=== PATIENT | female | born 1960 | race African-American/Black ===

== ENCOUNTER 2017-08-03 12:14 | Inpatient (IN) | payer OTHER ==
[2017-08-03 14:01] VITALS: BMI 38.9
[2017-08-03] MEDS ORDERED: NICOTINE POLACRILEX 2 MG GUM BUC PRN (14:11)
[2017-08-03] MEDS ORDERED: guaiFENesin/D-METHORPHAN HB 10 ML UNIT-DOSE CUPS PO PRN (14:11)
[2017-08-03] MEDS ORDERED: chlordiazePOXIDE HCL 25 MG CAPSULE PO PRN (14:11)
[2017-08-03] MEDS ORDERED: IBUPROFEN 400 MG TABLET (FP) PO PRN (14:11)
[2017-08-03] MEDS ORDERED: MAGNESIUM HYDROX 2400MG/30ML ORAL SUSPENSION 30 ML CUP PO PRN (14:11)
[2017-08-03] MEDS ORDERED: ACETAMINOPHEN 325 MG TABLET (FP) PO PRN (14:11)
[2017-08-03] MEDS ORDERED: P-EPHED 60MG/TRIPROLIDI 2.5MG TABLET PO PRN (14:11)
[2017-08-03] MEDS ORDERED: MAGNESIUM CITRATE 300 ML BOTTLE PO PRN (14:11)
[2017-08-03] MEDS ORDERED: MAG HYDROX/AL HYDROX/SIMETH 30 ML UNIT-DOSE CUP PO PRN (14:11)
[2017-08-03] MEDS ORDERED: LOPERAMIDE HCL 2 MG CAPSULE PO PRN (14:11)
[2017-08-03] MEDS ORDERED: MENTHOL/PHENOL 1 EACH UD MM PRN (14:11)
--- NOTE | 2017-08-03 14:22 | HP ---
CIWA Score - CIWA Score Nausea/Vomitin Muscle Tremors: 2 Anxiety: 3 Agitation: 4-Moderately Restless Paroxysmal Sweats: 2 Orientation: 0-Oriented Tacttile Disturbances: 0-None Auditory Disturbances: 0-None Visual Disturbances: 0-None Headache: 0-None Present CIWA-Ar Total Score: 14 Admission [facility] - HPI Chief Complaint: " I am here to detox off xanax and alcohol" Allergies/Adverse Reactions: Allergies Allergy/AdvReac Type Severity Reaction Status Date / Time No Known Drug Allergies Allergy Verified 08/03/17 14:10 History of Present Illness: 57 yo female with hx of xanax, alcohol, cocaine and nicotine dependence is here seeking detox. Last detox [facility] 2013. PMHX: GRD, hyperthyroid, bipolar, insomnia , and depression. I-stop reviewed patient no hx of prescribed controlled substances Reference #: [id number]. Denies suicidal / homicidal ideation. Hx of suicide attempt, patient did not specify went. Exam Limitations: No Limitations - Ebola screening Have you traveled outside of the country in the last 21 days: No Have you had contact with anyone from an Ebola affected area: No Have you been sick,other than usual withdrawal symptoms: No Do you have a fever: No - Review of Systems Constitutional: Chills, Changes in sleep EENT: reports: No Symptoms Reported Respiratory: reports: No Symptoms reported Cardiac: reports: No Symptoms Reported GI: reports: Diarrhea, Nausea, Poor Fluid Intake : reports: No Symptoms Reported Musculoskeletal: reports: Back Pain Integumentary: reports: No Symptoms Reported Neuro: reports: No Symptoms reported Endocrine: reports: See HPI Hematology: reports: No Symptoms Reported Psychiatric: reports: Orientated x3, Anxious Other Systems: Reviewed and Negative Patient History - Patient Medical History Hx Anemia: No Hx Asthma: No Hx Chronic Obstructive Pulmonary Disease (COPD): No Hx Cancer: No Hx Cardiac Disorders: No Hx Congestive Heart Failure: No Hx Hypertension: No Hx Hypercholesterolemia: No Hx Pacemaker: No HX Cerebrovascular Accident: No Hx Seizures: No Hx Dementia: No Hx Diabetes: No Hx Gastrointestinal Disorders: No Hx Liver Disease: No Hx Genitourinary Disorders: No Hx Sexually Transmitted Disorders: No Hx Renal Disease (ESRD): No Hx Thyroid Disease: Yes (GRAVES) Hx Human Immunodeficiency Virus (HIV): No Hx Hepatitis C: No Hx Depression: No Hx Suicide Attempt: Yes (OD,SLASH WRIST) Hx Bipolar Disorder: Yes (SEROQUEL,TRAZODONE,WELLBUTRIN) Hx Schizophrenia: No - Patient Surgical History Past Surgical History: Yes Hx Neurologic Surgery: No Hx Cataract Extraction: No Hx Cardiac Surgery: No Hx Lung Surgery: No Hx Breast Surgery: No Hx Breast Biopsy: No Hx Abdominal Surgery: No Hx Appendectomy: No Hx Cholecystectomy: No Hx Genitourinary Surgery: No Hx Section: No Hx Orthopedic Surgery: No Hx Hysterectomy: No Other Surgical History: TUBAL LIGATION Anesthesia Reaction: (UNKNOWN) - PPD History Previous Implant?: Yes Documented Results: Negative w/proof Date: 09/25/13 PPD to be Administered?: Yes - Reproductive History Patient is a Female of Child Bearing Age (11 -55 yrs old): No Last Menstrual Period: 09/23/13 Patient : No - Smoking Cessation Smoking history: Current every day smoker Have you smoked in the past 12 months: Yes Aproximately how many cigarettes per day: 20 Hx Chewing Tobacco Use: No Initiated information on smoking cessation: Yes 'Breaking Loose' booklet given: 08/03/17 - Substance & Tx. History Hx Alcohol Use: Yes Hx Substance Use: Yes Substance Use Type: Alcohol Hx Substance Use Treatment: Yes ([facility] 2013) - Substances Abused Alcohol Route: Oral Frequency: Daily Amount used: 1 [place] Age of first use: 17 Date of Last Use: 08/02/17 Crack Route: Smoking Frequency: Daily Amount used: $300-400 Age of first use: 17 Date of Last Use: 08/02/17 Alprazolam (Xanax) Route: Oral Frequency: 1-3 times last 30 days Amount used: 2MG Age of first use: 56 Date of Last Use: 07/31/17 Family Disease History - Family Disease History Family Disease History: Diabetes: Mother (ALCOHOL), Other: Father (ALCOHOL), Mother Admission Physical Exam S - Vital Signs Vital Signs: Vital Signs - 24 hr 08/03/17 13:58 Temperature 96.8 F L Pulse Rate 71 Respiratory 18 Rate Blood Pressure 149/70 - Physical General Appearance: Yes: Appropriately Dressed, Mild Distress, Obese, Sweating, Anxious HEENTM: Yes: EOMI, Hearing grossly Normal, Normal ENT Inspection, Normocephalic , Normal Voice, Pharynx Normal, Tm's normal, Other (poor dentation) Respiratory: Yes: Chest Non-Tender, Lungs Clear, Normal Breath Sounds, No Respiratory Distress, No Accessory Muscle Use Neck: Yes: Within Normal Limits Breast: Yes: Breast Exam Deferred, Surgical Scar Cardiology: Yes: Regular Rhythm Abdominal: Yes: Normal Bowel Sounds, Non Tender, Flat Genitourinary: Yes: Within Normal Limits Back: Yes: Normal Inspection Musculoskeletal: Yes: full range of Motion, Gait Steady, Pelvis Stable, Back pain Extremities: Yes: Normal Capillary Refill, Normal Inspection, Normal Range of Motion, Non-Tender Neurological: Yes: art glass setter II-XII NML intact, Motor Strength 5/5 Integumentary: Yes: Normal Color, Warm, Diaphoresis Lymphatic: Yes: Within Normal Limits - Diagnostic (1) Alcohol dependence with withdrawal Current Visit: Yes Status: Acute Qualifiers: Complication of substance-induced condition: uncomplicated Qualified Code(s ): F10.230 - Alcohol dependence with withdrawal, uncomplicated (2) Sedative hypnotic or anxiolytic dependence Current Visit: Yes Status: Acute (3) Obese Current Visit: Yes Status: Acute Qualifiers: Obesity classification: adult class 2 (BMI 35 - 39.9) Serious obesity comorbidity presence: unspecified whether serious comorbidity present (4) GERD (gastroesophageal reflux disease) Current Visit: Yes Status: Chronic Qualifiers: Esophagitis presence: esophagitis presence not specified Qualified Code(s) : K21.9 - Gastro-esophageal reflux disease without esophagitis (5) Cocaine dependence Current Visit: Yes Status: Acute Qualifiers: Substance use status: uncomplicated Qualified Code(s): F14.20 - Cocaine dependence, uncomplicated (6) Graves disease Current Visit: Yes Status: Chronic (7) Nicotine dependence Current Visit: Yes Status: Acute Qualifiers: Nicotine product type: cigarettes (8) Back pain Current Visit: Yes Status: Chronic Qualifiers: Back pain location: low back pain Chronicity: chronic Back pain laterality: midline Sciatica presence: without sciatica Qualified Code(s): M54.5 - Low back pain; G89.29 - Other chronic pain BHS Breath Alcohol Content Breath Alcohol Content: 0 Urine Pregancy Test - Result Urine Test Results: Negative- NO Line Present Urine Drug Screen - Results Drug Screen Negative: No Urine Drug Screen Results: DAIN-Cocaine
[2017-08-03] MEDS ORDERED: chlordiazePOXIDE HCL 25 MG CAPSULE PO ONE (15:55)
[2017-08-03] MEDS: LIDOCAINE 5% TOPICAL PATCH TP SCH (17:33)
[2017-08-03 19:51] LABS: URINE APPEARANCE CLOUDY; URINE BILIRUBIN NEGATIVE (<2.0 mg/dL); URINE COLOR YELLOW; URINE GLUCOSE (UA) NEGATIVE (NEGATIVE); URINE KETONE NEGATIVE (NEGATIVE); URINE NITRITE NEGATIVE (NEGATIVE); URINE PROTEIN NEGATIVE (NEGATIVE); URINE UROBILINOGEN NEGATIVE mg/dL (0.2-1.0)
[2017-08-03 19:54] LABS: URINE LEUK ESTERASE 3+ (NEGATIVE)
[2017-08-03 20:00] LABS: EPI CELLS MANY /HPF (FEW); URINE BACTERIA RARE /hpf (NONE SEEN); URINE MUCUS FEW
[2017-08-03] MEDS: METHIMAZOLE 10 MG TABLET (FP) PO SCH ×2 (20:36→23:09)
[2017-08-03] MEDS: chlordiazePOXIDE HCL 25 MG CAPSULE PO SCH ×2 (20:36→22:15)
[2017-08-03] MEDS ORDERED: MELATONIN 5 MG TABLETS PO PRN (22:00)
[2017-08-03] MEDS: LIDOCAINE PATCH REMOVAL MC SCH (22:15)
[2017-08-03] MEDS: THIAMINE HCL 100 MG TABLET (FP) PO SCH (22:15)
[2017-08-03] MEDS: PANTOPRAZOLE 20 MG TABLET (FP) PO SCH (22:15)
[2017-08-04] MEDS: chlordiazePOXIDE HCL 25 MG CAPSULE PO SCH ×4 (05:08→22:23)
[2017-08-04] MEDS: METHIMAZOLE 10 MG TABLET (FP) PO SCH ×2 (07:49→15:22)
--- NOTE | 2017-08-04 09:41 | PN ---
S CIWA - CIWA Score Nausea/Vomitin Muscle Tremors: 3 Anxiety: 2 Agitation: 2 Paroxysmal Sweats: 3 Orientation: 0-Oriented Tacttile Disturbances: 1-Very Mild Itch/Numbness Auditory Disturbances: 1-Very Mild Visual Disturbances: 1-Very Mild Sensitivity Headache: 1-Very Mild CIWA-Ar Total Score: 16 BHS Progress Note (SOAP) Subjective: Irritability, interrupted slee, shakes and sweats Objective: 08/04/17 09:40 Vital Signs - 8 hr 08/04/17 08/04/17 03:30 06:16 Temperature 97.7 F Pulse Rate 67 Respiratory 18 18 Rate Blood Pressure 133/71 Laboratory Last Values Urine Color Yellow 08/03/17 16:15 Urine Appearance Cloudy 08/03/17 16:15 Urine pH 5.0 (5.0-8.0) 08/03/17 16:15 Ur Specific [place] 1.025 (1.001-1.035) 08/03/17 16:15 Urine Protein Negative (NEGATIVE) 08/03/17 16:15 Urine Glucose (UA) Negative (NEGATIVE) 08/03/17 16:15 Urine Ketones Negative (NEGATIVE) 08/03/17 16:15 Urine Blood Negative (NEGATIVE) 08/03/17 16:15 Urine Nitrite Negative (NEGATIVE) 08/03/17 16:15 Urine Bilirubin Negative (<2.0 mg/dL) 08/03/17 16:15 Urine Urobilinogen Negative mg/dL (0.2-1.0) 08/03/17 16:15 Ur Leukocyte Esterase 3+ (NEGATIVE) H 08/03/17 16:15 Urine WBC (Auto) 10 /hpf (3-5) 08/03/17 16:15 Urine RBC (Auto) 3 /hpf (0-3) 08/03/17 16:15 Ur Epithelial Cells Many /HPF (FEW) 08/03/17 16:15 Urine Bacteria Rare /hpf (NONE SEEN) 08/03/17 16:15 Urine Mucus Few 08/03/17 16:15 Labs pending, UA noted to be contaminated Assessment: 08/04/17 09:41 Withdrawal sx Plan: Continue detox Repeat UA
[2017-08-04] MEDS: PRENATAL VITAMINS W/ FOLIC ACID TABLET (FP) PO SCH (10:04)
[2017-08-04] MEDS: NICOTINE 14 MG/24 HOURS TOPICAL PATCH TD SCH (10:04)
[2017-08-04] MEDS: LIDOCAINE 5% TOPICAL PATCH TP SCH (10:04)
[2017-08-04] MEDS: PANTOPRAZOLE 20 MG TABLET (FP) PO SCH ×2 (10:05→22:23)
[2017-08-04 10:27] LABS: HEMOGLOBIN 11.9 GM/dL (10.7-15.3); MCH 24.3 pg (25.7-33.7); MCHC 31.3 g/dl (32.0-36.0); MEAN CELL VOLUME 77.5 fl (80-96); MEAN PLT VOLUME 9.4 fl (7.5-11.1); PLATELET COUNT 152 K/MM3 (134-434); RBC 4.91 M/mm3 (3.60-5.2); RDW 16.7 % (11.6-15.6); WHITE BLOOD COUNT 4.1 K/mm3 (4.0-10.0)
[2017-08-04 10:47] LABS: ANION GAP 7 (8-16); BLOOD UREA NITROGEN 9 mg/dL (7-18); CALCIUM 8.7 mg/dL (8.5-10.1); CHLORIDE 107 mmol/L (98-107); CO2 27 mmol/L (21-32); GLUCOSE,RANDOM 95 mg/dL (74-106); POTASSIUM 3.8 mmol/L (3.5-5.1); SODIUM 141 mmol/L (136-145)
[2017-08-04 10:51] LABS: ALK PHOS 139 U/L (45-117); BILIRUBIN,TOTAL 0.3 mg/dL (0.2-1.0); CREATININE 0.5 mg/dL (0.55-1.02); SGOT/AST 13 U/L (15-37); SGPT/ALT 20 U/L (12-78); TOT PROT 6.8 g/dl (6.4-8.2)
[2017-08-04] MEDS: hydrOXYzine PAMOATE 50 MG CAPSULE (FP) PO PRN (17:44)
[2017-08-04] MEDS ORDERED: METHIMAZOLE 10 MG TABLET (FP) PO SCH (22:00)
[2017-08-04] MEDS: THIAMINE HCL 100 MG TABLET (FP) PO SCH (22:23)
[2017-08-04] MEDS: LIDOCAINE PATCH REMOVAL MC SCH (22:24)
[2017-08-05] MEDS: chlordiazePOXIDE HCL 25 MG CAPSULE PO SCH ×2 (05:26→10:09)
[2017-08-05] MEDS: METHIMAZOLE 10 MG TABLET (FP) PO SCH ×2 (05:29→13:52)
[2017-08-05] MEDS: PANTOPRAZOLE 20 MG TABLET (FP) PO SCH (10:09)
[2017-08-05] MEDS: PRENATAL VITAMINS W/ FOLIC ACID TABLET (FP) PO SCH (10:09)
[2017-08-05] MEDS: hydrOXYzine PAMOATE 50 MG CAPSULE (FP) PO PRN ×2 (10:09→13:53)
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
[2017-08-05] MEDS: LIDOCAINE 5% TOPICAL PATCH TP SCH (11:40)
[2017-08-05] MEDS: NICOTINE 14 MG/24 HOURS TOPICAL PATCH TD SCH (11:41)
[2017-08-05] MEDS: TOPIRAMATE 25 MG TABLET (FP) PO SCH (13:52)
--- NOTE | 2017-08-05 17:00 | PN ---
[facility] CIWA - CIWA Score Nausea/Vomitin-Mild Nausea/No Vomiting Muscle Tremors: 4-Moderate,w/Arms Extend Anxiety: 4-Mod. Anxious/Guarded Agitation: 3 Paroxysmal Sweats: 1-Minimal Palms Moist Orientation: 0-Oriented Tacttile Disturbances: 0-None Auditory Disturbances: 0-None Visual Disturbances: 0-None Headache: 0-None Present CIWA-Ar Total Score: 13 BHS Progress Note (SOAP) Subjective: anxiety tremor sweat restlessness Objective: 08/05/17 17:18 Vital Signs Temperature 97.9 F 08/05/17 13:09 Pulse Rate 67 08/05/17 13:09 Respiratory Rate 18 08/05/17 13:09 Blood Pressure 140/57 08/05/17 13:09 O2 Sat by Pulse Oximetry (%) Laboratory Last Values WBC 4.1 K/mm3 (4.0-10.0) 08/04/17 08:00 RBC 4.91 M/mm3 (3.60-5.2) 08/04/17 08:00 Hgb 11.9 GM/dL (10.7-15.3) 08/04/17 08:00 Hct 38.0 % (32.4-45.2) 08/04/17 08:00 MCV 77.5 fl (80-96) L 08/04/17 08:00 MCH 24.3 pg (25.7-33.7) L D 08/04/17 08:00 MCHC 31.3 g/dl (32.0-36.0) L 08/04/17 08:00 RDW 16.7 % (11.6-15.6) H 08/04/17 08:00 Plt Count 152 K/MM3 (134-434) D 08/04/17 08:00 MPV 9.4 fl (7.5-11.1) 08/04/17 08:00 Sodium 141 mmol/L (136-145) 08/04/17 08:00 Potassium 3.8 mmol/L (3.5-5.1) 08/04/17 08:00 Chloride 107 mmol/L (98-107) 08/04/17 08:00 Carbon Dioxide 27 mmol/L (21-32) 08/04/17 08:00 Anion Gap 7 (8-16) L 08/04/17 08:00 BUN 9 mg/dL (7-18) 08/04/17 08:00 Creatinine 0.5 mg/dL (0.55-1.02) L 08/04/17 08:00 Creat Clearance w eGFR > 60 (>60) 08/04/17 08:00 Random Glucose 95 mg/dL (74-106) 08/04/17 08:00 Calcium 8.7 mg/dL (8.5-10.1) 08/04/17 08:00 Total Bilirubin 0.3 mg/dL (0.2-1.0) 08/04/17 08:00 AST 13 U/L (15-37) L 08/04/17 08:00 ALT 20 U/L (12-78) 08/04/17 08:00 Alkaline Phosphatase 139 U/L (45-117) H 08/04/17 08:00 Total Protein 6.8 g/dl (6.4-8.2) 08/04/17 08:00 Albumin 3.0 g/dl (3.4-5.0) L 08/04/17 08:00 Urine Color Yellow 08/03/17 16:15 Urine Appearance Cloudy 08/03/17 16:15 Urine pH 5.0 (5.0-8.0) 08/03/17 16:15 Ur Specific [place] 1.025 (1.001-1.035) 08/03/17 16:15 Urine Protein Negative (NEGATIVE) 08/03/17 16:15 Urine Glucose (UA) Negative (NEGATIVE) 08/03/17 16:15 Urine Ketones Negative (NEGATIVE) 08/03/17 16:15 Urine Blood Negative (NEGATIVE) 08/03/17 16:15 Urine Nitrite Negative (NEGATIVE) 08/03/17 16:15 Urine Bilirubin Negative (<2.0 mg/dL) 08/03/17 16:15 Urine Urobilinogen Negative mg/dL (0.2-1.0) 08/03/17 16:15 Ur Leukocyte Esterase 3+ (NEGATIVE) H 08/03/17 16:15 Urine WBC (Auto) 10 /hpf (3-5) 08/03/17 16:15 Urine RBC (Auto) 3 /hpf (0-3) 08/03/17 16:15 Ur Epithelial Cells Many /HPF (FEW) 08/03/17 16:15 Urine Bacteria Rare /hpf (NONE SEEN) 08/03/17 16:15 Urine Mucus Few 08/03/17 16:15 RPR Titer Nonreactive (NONREACTIVE) 08/04/17 08:00 Hep C Ab Diagnostic <0.1 s/co ratio (0.0-0.9) 08/04/17 08:00 Liver Fibrosis Interp (.) 08/04/17 08:00 HIV 1&2 Antibody Screen Preliminary positive 08/04/17 08:00 HIV P24 Antigen Negative 08/04/17 08:00 lab noted hiv preliminary positive patient informed Assessment: 08/05/17 17:20 withdrawal sx preliminary hiv positive Plan: continue detox health teaching on possible hiv treatment options and further testings may required discuss safe sex patient agrees to discuss hiv further when questions surface emotional support
[2017-08-05] MEDS: chlordiazePOXIDE 5 MG CAPSULE PO SCH (17:55)
[2017-08-06] MEDS: chlordiazePOXIDE 5 MG CAPSULE PO SCH ×3 (06:25→10:58)
[2017-08-06] MEDS: METHIMAZOLE 10 MG TABLET (FP) PO SCH ×4 (07:17→22:33)
[2017-08-06] MEDS: THIAMINE HCL 100 MG TABLET (FP) PO SCH ×2 (08:33→22:31)
[2017-08-06] MEDS: PANTOPRAZOLE 20 MG TABLET (FP) PO SCH ×3 (08:33→22:32)
[2017-08-06] MEDS: QUEtiapine FUMARATE 200 MG TABLET PO SCH ×2 (08:33→22:33)
[2017-08-06] MEDS: LIDOCAINE PATCH REMOVAL MC SCH ×2 (08:33→22:33)
[2017-08-06] MEDS: TOPIRAMATE 25 MG TABLET (FP) PO SCH (10:57)
[2017-08-06] MEDS: LIDOCAINE 5% TOPICAL PATCH TP SCH (10:58)
[2017-08-06] MEDS: NICOTINE 14 MG/24 HOURS TOPICAL PATCH TD SCH (10:58)
[2017-08-06] MEDS: PRENATAL VITAMINS W/ FOLIC ACID TABLET (FP) PO SCH (10:58)
--- NOTE | 2017-08-06 12:33 | PN ---
S Progress Note (SOAP) Subjective: ALERT,IRRITABLE,ANXIOUS,INTERRUPTED SLEEP Objective: 08/06/17 12:33 Vital Signs Temperature 96.3 F L 08/06/17 11:07 Pulse Rate 72 08/06/17 11:07 Respiratory Rate 20 08/06/17 11:07 Blood Pressure 111/71 08/06/17 11:07 O2 Sat by Pulse Oximetry (%) 08/06/17 12:34 PRELIMINARY TESTING IS POSITIVE PENDING OF CONFIRMATION TEST Assessment: 08/06/17 12:36 WITHDRAWAL SYMPTOM Plan: CONTINUE DETOX ,SPOKE WITH BRAD AT [facility],AWAITING FOR CONFIRMATION TEST
[2017-08-06] MEDS: chlordiazePOXIDE HCL 10 MG CAPSULE PO SCH ×2 (18:21→22:32)
--- NOTE | 2017-08-06 22:14 | EKG ---
Test Reason : Blood Pressure : / mmHG Vent. Rate : 067 BPM Atrial Rate : 067 BPM P-R Int : 140 ms QRS Dur : 080 ms QT Int : 438 ms P-R-T Axes : 041 045 056 degrees QTc Int : 462 ms NORMAL SINUS RHYTHM WITH SINUS ARRHYTHMIA SEPTAL INFARCT , AGE UNDETERMINED ABNORMAL ECG NO PREVIOUS ECGS AVAILABLE Confirmed by AYUSH HILLIARD MD ([id number]) on 08/06/2017 10:14:18 PM Referred By: Confirmed By:AYUSH HILLIARD MD
[2017-08-07] MEDS: chlordiazePOXIDE HCL 10 MG CAPSULE PO SCH (05:28)
[2017-08-07] MEDS: METHIMAZOLE 10 MG TABLET (FP) PO SCH (05:29)
--- NOTE | 2017-08-07 08:31 | PN ---
S Progress Note (SOAP) Subjective: ALERT,NO COMPLAINT Objective: 08/07/17 08:22 Vital Signs Temperature 97.2 F L 08/07/17 06:00 Pulse Rate 66 08/07/17 06:00 Respiratory Rate 18 08/07/17 06:00 Blood Pressure 119/75 08/07/17 06:00 O2 Sat by Pulse Oximetry (%) 08/07/17 08:24 HIV CONFIRMATION TEST NON REACTIVE Assessment: 08/07/17 08:23 DETOX COMPLETED,NO WITHDRAWAL SYMPTOM Plan: DISCHARGE TODAY,FOLLOW UP WITH AFTER CARE ARRANGEMENT ,PATIENT WILL GO TO [facility] FOR PRIMARY CARE AND FOR PAIN MANAGEMENT
[2017-08-07 08:43] VITALS: BP 126/69; PULSE 75; TEMP 96.4
--- NOTE | 2017-08-07 08:51 | DS ---
[facility] Detox Discharge Summary Admission Date: 08/03/17 Discharge Date: 08/07/17 - History Present History: Alcohol Dependence, Cannabis Dependence, Cocaine Dependence, Sedative Dependence Additional Comments: FOLLOW UP WITH AFTER CARE PROGRAM ARRANGEMENT Pertinent Past History: GERD BACK PAIN - Physical Exam Results Vital Signs: Vital Signs Temperature 96.4 F L 08/07/17 08:42 Pulse Rate 75 08/07/17 08:42 Respiratory Rate 18 08/07/17 08:42 Blood Pressure 126/69 08/07/17 08:42 O2 Sat by Pulse Oximetry (%) Pertinent Admission Physical Exam Findings: WITHDRAWAL SIGNS AND SYMPTOM Vital Signs Temperature 96.4 F L 08/07/17 08:42 Pulse Rate 75 08/07/17 08:42 Respiratory Rate 18 08/07/17 08:42 Blood Pressure 126/69 08/07/17 08:42 O2 Sat by Pulse Oximetry (%) Laboratory Last Values WBC 4.1 K/mm3 (4.0-10.0) 08/04/17 08:00 RBC 4.91 M/mm3 (3.60-5.2) 08/04/17 08:00 Hgb 11.9 GM/dL (10.7-15.3) 08/04/17 08:00 Hct 38.0 % (32.4-45.2) 08/04/17 08:00 MCV 77.5 fl (80-96) L 08/04/17 08:00 MCH 24.3 pg (25.7-33.7) L D 08/04/17 08:00 MCHC 31.3 g/dl (32.0-36.0) L 08/04/17 08:00 RDW 16.7 % (11.6-15.6) H 08/04/17 08:00 Plt Count 152 K/MM3 (134-434) D 08/04/17 08:00 MPV 9.4 fl (7.5-11.1) 08/04/17 08:00 Sodium 141 mmol/L (136-145) 08/04/17 08:00 Potassium 3.8 mmol/L (3.5-5.1) 08/04/17 08:00 Chloride 107 mmol/L (98-107) 08/04/17 08:00 Carbon Dioxide 27 mmol/L (21-32) 08/04/17 08:00 Anion Gap 7 (8-16) L 08/04/17 08:00 BUN 9 mg/dL (7-18) 08/04/17 08:00 Creatinine 0.5 mg/dL (0.55-1.02) L 08/04/17 08:00 Creat Clearance w eGFR > 60 (>60) 08/04/17 08:00 Random Glucose 95 mg/dL (74-106) 08/04/17 08:00 Calcium 8.7 mg/dL (8.5-10.1) 08/04/17 08:00 Total Bilirubin 0.3 mg/dL (0.2-1.0) 08/04/17 08:00 AST 13 U/L (15-37) L 08/04/17 08:00 ALT 20 U/L (12-78) 08/04/17 08:00 Alkaline Phosphatase 139 U/L (45-117) H 08/04/17 08:00 Total Protein 6.8 g/dl (6.4-8.2) 08/04/17 08:00 Albumin 3.0 g/dl (3.4-5.0) L 08/04/17 08:00 Urine Color Yellow 08/03/17 16:15 Urine Appearance Cloudy 08/03/17 16:15 Urine pH 5.0 (5.0-8.0) 08/03/17 16:15 Ur Specific [place] 1.025 (1.001-1.035) 08/03/17 16:15 Urine Protein Negative (NEGATIVE) 08/03/17 16:15 Urine Glucose (UA) Negative (NEGATIVE) 08/03/17 16:15 Urine Ketones Negative (NEGATIVE) 08/03/17 16:15 Urine Blood Negative (NEGATIVE) 08/03/17 16:15 Urine Nitrite Negative (NEGATIVE) 08/03/17 16:15 Urine Bilirubin Negative (<2.0 mg/dL) 08/03/17 16:15 Urine Urobilinogen Negative mg/dL (0.2-1.0) 08/03/17 16:15 Ur Leukocyte Esterase 3+ (NEGATIVE) H 08/03/17 16:15 Urine WBC (Auto) 10 /hpf (3-5) 08/03/17 16:15 Urine RBC (Auto) 3 /hpf (0-3) 08/03/17 16:15 Ur Epithelial Cells Many /HPF (FEW) 08/03/17 16:15 Urine Bacteria Rare /hpf (NONE SEEN) 08/03/17 16:15 Urine Mucus Few 08/03/17 16:15 RPR Titer Nonreactive (NONREACTIVE) 08/04/17 08:00 Hep C Ab Diagnostic <0.1 s/co ratio (0.0-0.9) 08/04/17 08:00 Liver Fibrosis Interp (.) 08/04/17 08:00 HIV 1&2 Ag/Ab, 4th Gen Non reactive (Non Reactive) 08/04/17 08:00 HIV 1&2 Antibody Screen Preliminary positive 08/04/17 08:00 HIV P24 Antigen Negative 08/04/17 08:00 CONFIRMATION TEST NEGATIVE - Treatment Hospital Course: Detox Protocol Followed, Detoxed Safely, Responded well, Discharged Condition Good - Medication Discharge Medications: Ambulatory Orders Methimazole [Tapazole -] 10 mg PO Q8H 08/03/17 Omeprazole 20 mg PO BID 08/03/17 propRANOLol HCL [Inderal -] 10 mg PO TID 08/03/17 Quetiapine Fumarate [Seroquel -] 200 mg PO HS #30 tablet 08/05/17 Topiramate [Topamax] 50 mg PO DAILY #30 tablet 08/05/17 - Diagnosis (1) Alcohol dependence with withdrawal Current Visit: Yes Status: Acute Qualifiers: Complication of substance-induced condition: uncomplicated Qualified Code(s ): F10.230 - Alcohol dependence with withdrawal, uncomplicated (2) Cocaine dependence Current Visit: Yes Status: Acute Qualifiers: Substance use status: uncomplicated Qualified Code(s): F14.20 - Cocaine dependence, uncomplicated (3) Back pain Current Visit: Yes Status: Chronic Qualifiers: Back pain location: low back pain Chronicity: chronic Back pain laterality: midline Sciatica presence: without sciatica Qualified Code(s): M54.5 - Low back pain; G89.29 - Other chronic pain (4) GERD (gastroesophageal reflux disease) Current Visit: Yes Status: Chronic Qualifiers: Esophagitis presence: without esophagitis Qualified Code(s): K21.9 - Gastro -esophageal reflux disease without esophagitis (5) Graves disease Current Visit: Yes Status: Chronic (6) Nicotine dependence Current Visit: Yes Status: Chronic Qualifiers: Nicotine product type: cigarettes (7) Schizoaffective disorder Current Visit: Yes Status: Ruled-out - AMA Did Patient Leave Against Medical Advice: No
[2017-08-07] MEDS: NICOTINE 14 MG/24 HOURS TOPICAL PATCH TD SCH (09:39)
[2017-08-07] MEDS: PRENATAL VITAMINS W/ FOLIC ACID TABLET (FP) PO SCH (09:39)
[2017-08-07] MEDS: LIDOCAINE 5% TOPICAL PATCH TP SCH (09:39)
[2017-08-07] MEDS: PANTOPRAZOLE 20 MG TABLET (FP) PO SCH (09:39)
[2017-08-07] MEDS: TOPIRAMATE 25 MG TABLET (FP) PO SCH (09:39)
== END 2017-08-07 09:33 | disposition home or self-care (01) | DRG 774 ==
LOC: YASAS 12:14 → Y6N 15:42
PROVIDERS: ADMIT Family Medicine Addiction Medicine; ATTEND Family Medicine Addiction Medicine
PROC: HZ2ZZZZ Detoxification Services for Substance Abuse Treatment (ICD-10-PCS; principal; 2017-08-03)
DX: F10.230 Alcohol dependence with withdrawal, uncomplicated (principal); F13.230 Sedative, hypnotic or anxiolytic dependence with withdrawal, uncomplicated; F14.20 Cocaine dependence, uncomplicated; F12.20 Cannabis dependence, uncomplicated; F25.9 Schizoaffective disorder, unspecified; F31.9 Bipolar disorder, unspecified; K21.9 Gastro-esophageal reflux disease without esophagitis; E05.00 Thyrotoxicosis with diffuse goiter without thyrotoxic crisis or storm; M54.5 Low back pain; G89.29 Other chronic pain; E66.9 Obesity, unspecified; Z68.38 Body mass index [BMI] 38.0-38.9, adult; Z91.5 Personal history of self-harm
CPT/HCPCS: 36415; 80053; 81003; 81015; 85027; 86593; 87389; 93005; 93010

== ENCOUNTER 2018-04-13 19:58 | Emergency (ER) | payer OTHER ==
[2018-04-13 20:06] VITALS: BP 128/80; PULSE 106; TEMP 98.4; BMI 33.0
--- NOTE | 2018-04-13 21:09 | PDOC ---
History of Present Illness - General Chief Complaint: Cold Symptoms Stated Complaint: flu symptoms Time Seen by Provider: 04/13/18 21:04 - History of Present Illness Initial Comments: 04/13/18 21:07 The 57-year-old female presents for evaluation of nasal congestion and cough 3 days. Fever was for the first 2 days the fever has resolved. Past History - Past Medical History Allergies/Adverse Reactions: Allergies Allergy/AdvReac Type Severity Reaction Status Date / Time No Known Drug Allergies Allergy Verified 04/13/18 20:06 Home Medications: Ambulatory Orders Methimazole [Tapazole -] 10 mg PO Q8H 08/03/17 Omeprazole 20 mg PO BID 08/03/17 Quetiapine Fumarate [Seroquel -] 200 mg PO HS #30 tablet 08/05/17 Topiramate [Topamax] 50 mg PO DAILY #30 tablet 08/05/17 Methimazole [Tapazole -] 10 mg PO TID #90 tablet 08/07/17 propRANOLol HCL [Inderal -] 10 mg PO TID #90 tablet 08/07/17 Anemia: No Asthma: No Cancer: No Cardiac Disorders: No CVA: No COPD: No CHF: No Dementia: No Diabetes: No GI Disorders: No Disorders: No HTN: No Hypercholesterolemia: No Kidney Stones: No Liver Disease: No Seizures: No Thyroid Disease: Yes ([facility]) - Surgical History Abdominal Surgery: No Appendectomy: No Cardiac Surgery: No Cholecystectomy: No Lung Surgery: No Neurologic Surgery: No Orthopedic Surgery: No - Reproductive History PID: No - Suicide/Smoking/Psychosocial Hx Smoking History: Never smoked Have you smoked in the past 12 months: No Number of Cigarettes Smoked Daily: 20 Information on smoking cessation initiated: No 'Breaking Loose' booklet given: 08/03/17 Hx Alcohol Use: No Drug/Substance Use Hx: No Substance Use Type: Alcohol Hx Substance Use Treatment: Yes ([facility] 2013) Review of Systems - Review of Systems Constitutional: Yes: Fever HEENTM: Yes: Nose Congestion Respiratory: Yes: Cough *Physical Exam - Vital Signs Last Vital Signs Temp Pulse Resp BP Pulse Ox 98.4 F 106 H 16 128/80 100 04/13/18 20:03 04/13/18 20:03 04/13/18 20:03 04/13/18 20:03 04/13/18 20:03 - Physical Exam Comments: 04/13/18 21:07 HEAD: NC/AT EYES: Conjuntiva clear Ears: Canals and TM's normal NOSE: No d/c THROAT: Moist mucous membrances, oral pharanx clear, uvula midline NECK: Supple without adenopathy CARDIAC: S1 S2 LUNGS: CTA Full and Equal breath sounds ABDOMEN: Soft NT ND MS: Full ROM in all joints without edema NEUROLOGIC: No gross sensory or motor deficits, NVID SKIN: Normal color and temperature no lesions or rashes Moderate Sedation - Procedure Monitoring Vital Signs: Procedure Monitoring Vital Signs Temperature 98.4 F 04/13/18 20:03 Pulse Rate 106 H 04/13/18 20:03 Respiratory Rate 16 04/13/18 20:03 Blood Pressure 128/80 04/13/18 20:03 O2 Sat by Pulse Oximetry (%) 100 04/13/18 20:03 *DC/Admit/Observation/Transfer Diagnosis at time of Disposition: Viral upper respiratory infection - Discharge Dispostion Disposition: HOME Condition at time of disposition: Stable Decision to Admit order: No - Referrals Referrals: Rubens Holliday [Non Staff, Medical] - - Patient Instructions Printed Discharge Instructions: DI for Viral Upper Respiratory Infection -- Adult Additional Instructions: Tylenol and Motrin for fever and body aches. Return to the emergency room should symptoms worsen and follow-up with internal medicine one to 2 days for further evaluation and treatment options. - Post Discharge Activity
== END 2018-04-13 21:17 | disposition home or self-care (01) ==
LOC: JERFT 19:58
DX: J06.9 Acute upper respiratory infection, unspecified (principal); B97.89 Other viral agents as the cause of diseases classified elsewhere
CPT/HCPCS: 99281-25